=== PATIENT | female | born 2000 | race Caucasian/White ===

== ENCOUNTER 2019-04-17 11:22 | Emergency (ER) | payer BC ==
[2019-04-17] MEDS ORDERED: Sodium Chloride 0.9% 10 ML Syringe FLUSH PRN (11:32)
[2019-04-17 11:43] VITALS: BP 107/59; PULSE 72
--- NOTE | 2019-04-17 12:02 | EDM.PDOC ---
ED HPI GENERAL MEDICAL PROBLEM - General Chief Complaint: Syncope Stated Complaint: HAD 2 FAINTING SPELLS,NAUSEOUS Time Seen by Provider: 04/17/19 11:28 Source of Information: Reports: Patient History Limitations: Reports: No Limitations - History of Present Illness INITIAL COMMENTS - FREE TEXT/NARRATIVE: Patient presents to the ER due to syncopal episodes and migraines. patient states she was in the shower this morning and fainted. Woke up laying in the shower, got back up and while exiting the shower, passes out an additional time and wake up on the bathroom floor. Patient was able to stand and ambulate to bedroom. Laid on the bed and still had diminished vision. Patient drank a coke due to possibly low blood sugar. Symptoms improved. Patient went to class this morning but still was having vision changes and left frontal migraine. Patient states she has a migraines history, about once a month. Denies taking prophylactic medication. only takes Excedrin for abortive medication. States this migraine is much worse than her usual. Patient denies fever, cough, rhinorrhea, nasal congestion, ear pain, diarrhea, nausea, vomiting, urgency, or dysuria. Patient denies feeling different yesterday. Onset: Today Onset Date: 04/17/19 Onset Time: 08:00 Duration: Getting Worse Location: Reports: Head Quality: Reports: Ache Severity: Moderate Improves with: Reports: None Worsens with: Reports: None Associated Symptoms: Reports: Nausea/Vomiting (patient felt nauseated today during class), Syncope Left Headache Pain Score (Numeric/FACES): 6 - Related Data Allergies Allergy/AdvReac Type Severity Reaction Status Date / Time amoxicillin Allergy Hives Verified 04/17/19 11:46 Home Meds: Home Meds Acetaminophen/Butalbital/Caff [Fioricet 325-50-40 MG] 2 each PO Q6HR PRN #20 tab 04/17/19 [Rx] Promethazine [Phenergan] 25 mg PO Q4H PRN #15 tab 04/17/19 [Rx] Past Medical History Neurological History: Reports: Concussion, Migraines Social & Family History - Tobacco Use Smoking Status *Q: Never Smoker - Recreational Drug Use Recreational Drug Use: No Review of Systems - Review of Systems Review Of Systems: See Below Constitutional: Denies: Chills, Diaphoresis, Fever, Weakness Eyes: Reports: Tunnel Vision, Vision Change, Glasses. Denies: Blindness, Decreased Acuity, Foreign Body Sensation, Previous Injury Ears: Reports: No Symptoms. Denies: Dizziness, Pain, Tinnitus Nose: Reports: No Symptoms. Denies: Congestion, Pain, Bloody Discharge, Clear Discharge, Purulent Discharge Mouth/Throat: Reports: No Symptoms Respiratory: Reports: No Symptoms. Denies: Shortness of Breath, Wheezing, Cough , Sputum Cardiovascular: Reports: No Symptoms, Lightheadedness, Syncope. Denies: Chest Pain, Edema, Irregular Heart Rate, Palpitations GI/Abdominal: Reports: No Symptoms, Nausea. Denies: Abdominal Pain, Constipation, Decreased Appetite, Diarrhea, Vomiting Genitourinary: Reports: No Symptoms. Denies: Dysuria, Hematuria, Incontinence, Painful Urination, Vaginal Bleeding Musculoskeletal: Reports: No Symptoms Skin: Reports: No Symptoms Neurological: Reports: Headache, Syncope. Denies: Confusion, Dizziness, Numbness, Paresthesia, Tingling, Tremors, Weakness Psychiatric: Denies: Confusion, Depression, Anxiety ED EXAM, GENERAL - Physical Exam Exam: See Below Exam Limited By: No Limitations General Appearance: Alert, WD/WN, No Apparent Distress Eye Exam: Bilateral Eye: Normal Inspection, PERRL (3mm) Ears: Normal External Exam, Normal Canal, Hearing Grossly Normal, Normal TMs Nose: Normal Inspection, Normal Mucosa, No Blood Throat/Mouth: Normal Inspection, Normal Lips, Normal Teeth, Normal Oropharynx, Normal Voice Head: Atraumatic, Normocephalic Neck: Normal Inspection, Supple, Non-Tender Respiratory/Chest: No Respiratory Distress, Lungs Clear, Normal Breath Sounds, No Accessory Muscle Use, Chest Non-Tender Cardiovascular: Normal Peripheral Pulses, Regular Rate, Rhythm, No Edema, No JVD , No Murmur, No Rub Peripheral Pulses: 2+: Radial (L), Radial (R) GI/Abdominal: Normal Bowel Sounds, Soft, Non-Tender, No Organomegaly, No Distention, No Abnormal Bruit, No Mass (Female) Exam: Deferred Rectal (Female) Exam: Deferred Back Exam: Normal Inspection Extremities: Normal Range of Motion, No Pedal Edema, Normal Capillary Refill Neurological: Alert, Oriented, CN II-XII Intact, Normal Cognition, Normal Gait, Normal Reflexes, No Motor/Sensory Deficits Psychiatric: Normal Affect, Normal Mood Skin Exam: Warm, Dry, Intact, Normal Color, No Rash, Pallor Lymphatic: No Adenopathy EKG INTERPRETATION EKG Date: 04/17/19 Time: 11:25 Rhythm: NSR Rate (Beats/Min): 69 [place]: Normal P-Wave: Present QRS: Normal ST-T: Normal QT: Normal Course - Vital Signs Text/Narrative:: The patient was seen by the PUMP TECHNICIAN. Labs, EKG ordered. Will given IV fluids, Toradol 30mg IVP, Reglan 20mg IVP, and Benadryl 50mg IVP. Last Recorded V/S: Last Vital Signs Temp 36.6 C 04/17/19 11:22 Pulse 72 04/17/19 11:22 Resp 16 04/17/19 11:22 BP 107/59 L 04/17/19 11:22 Pulse Ox 100 04/17/19 11:22 - Orders/Labs/Meds Orders: Active Orders 24 hr Category Date Time Status EKG Documentation Completion [RC] STAT Care 04/17/19 11:28 Active Sodium Chloride 0.9% [Saline Flush] Med 04/17/19 11:32 Active 10 ml FLUSH ASDIRECTED PRN Saline Lock Insert [OM.PC] Routine Oth 04/17/19 11:32 Ordered Medication Orders Sodium Chloride (Saline Flush) 10 ml FLUSH ASDIRECTED PRN PRN Reason: Keep Vein Open Labs: Laboratory Tests 04/17/19 04/17/19 04/17/19 Range/Units 11:55 11:55 12:06 WBC 8.5 (4.0-10.0) x10^3/uL RBC 4.24 (4.00-5.50) x10^6/uL Hgb 12.5 (12.0-16.0) g/dL Hct 38.5 (33.0-47.0) % MCV 90.8 (78.0-93.0) fL MCH 29.5 (26.0-32.0) pg MCHC 32.5 (32.0-36.0) g/dL RDW Coeff of Felice 13.7 (10.0-15.0) % Plt Count 205 (130-400) x10^3/uL Neut % (Auto) 82.6 H (50.0-80.0) % Lymph % (Auto) 11.7 L (25.0-50.0) % [place] % (Auto) 5.3 (2.0-11.0) % Eos % (Auto) 0.2 (0.0-4.0) % Baso % (Auto) 0.2 (0.2-1.2) % Sodium 142 (136-145) mmol/L Potassium 4.3 (3.5-5.1) mmol/L Chloride 104 (98-107) mmol/L Carbon Dioxide 27 (21-32) mmol/L Anion Gap 15.3 (10-20) mmol/L BUN 16 (7-18) mg/dL Creatinine 0.8 (0.55-1.02) mg/dL Est Cr Clr Drug Dosing TNP Estimated GFR (MDRD) > 60 Glucose 92 (74-106) mg/dL Calcium 8.7 (8.5-10.1) mg/dL Corrected Calcium 8.70 (8.5-10.1) mg/dL Magnesium 2.1 (1.8-2.4) mg/dL Total Bilirubin 0.5 (0.2-1.0) mg/dL AST 22 (15-37) U/L ALT 31 (14-59) U/L Alkaline Phosphatase 39 L (46-116) U/L Total Protein 8.2 (6.4-8.2) g/dL Albumin 4.0 (3.4-5.0) g/dL Globulin 4.2 Albumin/Globulin Ratio 0.95 Urine Color (YELLOW) Urine Appearance (CLEAR) Urine pH (5.0-8.0) Ur Specific [place] Urine Protein (NEGATIVE) mg/dL Urine Glucose (UA) (NEGATIVE) mg/dL Urine Ketones (NEGATIVE) mg/dL Urine Occult Blood (NEGATIVE) Urine Nitrite (NEGATIVE) Urine Bilirubin (NEGATIVE) Urine Urobilinogen (0.2) EU/dL Ur Leukocyte Esterase (NEGATIVE) Urine RBC (NOT SEEN) /HPF Urine WBC (NOT SEEN) /HPF Ur Squamous Epith Cells (NEGATIVE) /HPF Amorphous Sediment Urine Bacteria (NEGATIVE) /HPF Urine Mucus (NEGATIVE) /LPF Urine HCG, Qual (NEGATIVE) Urine Opiates Screen Negative (NEGATIVE) Ur Buprenorphine Scrn Negative (NEGATIVE) Ur Oxycodone Screen Negative (NEGATIVE) Ur EDDP (Meth Metab) Negative (NEGATIVE) Urine Methadone Screen Negative (NEGATIVE) Ur Barbituates Screen Negative (NEGATIVE) Ur Tricyclics Screen Negative (NEGATIVE) Ur Phencyclidine Scrn Negative (NEGATIVE) Ur Amphetamines Screen Negative (NEGATIVE) U Methamphetamines Scrn Negative (NEGATIVE) Urine MDMA Screen Negative (NEGATIVE) U Benzodiazepines Scrn Negative (NEGATIVE) Urine Cocaine Screen Negative (NEGATIVE) U Marijuana (THC) Screen Negative (NEGATIVE) Ethyl Alcohol < 3 (0-3) mg/dL 04/17/19 04/17/19 Range/Units 12:06 12:06 WBC (4.0-10.0) x10^3/uL RBC (4.00-5.50) x10^6/uL Hgb (12.0-16.0) g/dL Hct (33.0-47.0) % MCV (78.0-93.0) fL MCH (26.0-32.0) pg MCHC (32.0-36.0) g/dL RDW Coeff of Felice (10.0-15.0) % Plt Count (130-400) x10^3/uL Neut % (Auto) (50.0-80.0) % Lymph % (Auto) (25.0-50.0) % [place] % (Auto) (2.0-11.0) % Eos % (Auto) (0.0-4.0) % Baso % (Auto) (0.2-1.2) % Sodium (136-145) mmol/L Potassium (3.5-5.1) mmol/L Chloride (98-107) mmol/L Carbon Dioxide (21-32) mmol/L Anion Gap (10-20) mmol/L BUN (7-18) mg/dL Creatinine (0.55-1.02) mg/dL Est Cr Clr Drug Dosing Estimated GFR (MDRD) Glucose (74-106) mg/dL Calcium (8.5-10.1) mg/dL Corrected Calcium (8.5-10.1) mg/dL Magnesium (1.8-2.4) mg/dL Total Bilirubin (0.2-1.0) mg/dL AST (15-37) U/L ALT (14-59) U/L Alkaline Phosphatase (46-116) U/L Total Protein (6.4-8.2) g/dL Albumin (3.4-5.0) g/dL Globulin Albumin/Globulin Ratio Urine Color Yellow (YELLOW) Urine Appearance Cloudy H (CLEAR) Urine pH 8.5 H (5.0-8.0) Ur Specific [place] 1.020 Urine Protein 30 H (NEGATIVE) mg/dL Urine Glucose (UA) Negative (NEGATIVE) mg/dL Urine Ketones Negative (NEGATIVE) mg/dL Urine Occult Blood Large H (NEGATIVE) Urine Nitrite Negative (NEGATIVE) Urine Bilirubin Negative (NEGATIVE) Urine Urobilinogen 0.2 (0.2) EU/dL Ur Leukocyte Esterase Negative (NEGATIVE) Urine RBC 5-10 H (NOT SEEN) /HPF Urine WBC 0-5 (NOT SEEN) /HPF Ur Squamous Epith Cells Few H (NEGATIVE) /HPF Amorphous Sediment Moderate Urine Bacteria Rare (NEGATIVE) /HPF Urine Mucus Rare H (NEGATIVE) /LPF Urine HCG, Qual Negative (NEGATIVE) Urine Opiates Screen (NEGATIVE) Ur Buprenorphine Scrn (NEGATIVE) Ur Oxycodone Screen (NEGATIVE) Ur EDDP (Meth Metab) (NEGATIVE) Urine Methadone Screen (NEGATIVE) Ur Barbituates Screen (NEGATIVE) Ur Tricyclics Screen (NEGATIVE) Ur Phencyclidine Scrn (NEGATIVE) Ur Amphetamines Screen (NEGATIVE) U Methamphetamines Scrn (NEGATIVE) Urine MDMA Screen (NEGATIVE) U Benzodiazepines Scrn (NEGATIVE) Urine Cocaine Screen (NEGATIVE) U Marijuana (THC) Screen (NEGATIVE) Ethyl Alcohol (0-3) mg/dL Meds: Medications Generic Name Dose Route Start Last Admin Trade Name Freq PRN Reason Stop Dose Admin Sodium Chloride 10 ml 04/17/19 11:32 Saline Flush FLUSH ASDIRECTED PRN Keep Vein Open Discontinued Medications Generic Name Dose Route Start Last Admin Trade Name Freq PRN Reason Stop Dose Admin Diphenhydramine HCl 50 mg 04/17/19 12:00 04/17/19 12:19 Benadryl IVPUSH 04/17/19 12:01 50 mg ONETIME ONE Administration Sodium Chloride 1,000 mls @ 999 mls/hr 04/17/19 12:00 04/17/19 12:17 Normal Saline IV 04/17/19 13:00 999 mls/hr ONETIME ONE Administration Ketorolac Tromethamine 30 mg 04/17/19 12:00 04/17/19 12:21 Toradol IVPUSH 04/17/19 12:01 30 mg ONETIME ONE Administration Metoclopramide HCl 20 mg 04/17/19 12:00 04/17/19 12:17 Reglan IVPUSH 04/17/19 12:01 20 mg ONETIME ONE Administration - Radiology Interpretation Free Text/Narrative:: head CT no acute findings CT Results Date: 04/17/19 Departure - Departure Time of Disposition: 14:02 Disposition: Home, Self-Care 01 Condition: Good Clinical Impression: Migraine Qualifiers: Migraine type: unspecified Syncope Qualifiers: Syncope type: unspecified Qualified Code(s): R55 - Syncope and collapse - Discharge Information *PRESCRIPTION DRUG MONITORING PROGRAM REVIEWED*: No *COPY OF PRESCRIPTION DRUG MONITORING REPORT IN PATIENT JONEL: No Prescriptions: Acetaminophen/Butalbital/Caff [Fioricet 325-50-40 MG] 2 each PO Q6HR PRN #20 tab PRN Reason: Headache Promethazine [Phenergan] 25 mg PO Q4H PRN #15 tab PRN Reason: Headache Instructions: Dehydration, Adult, [id number], Migraine Headache, [id number] , Recurrent Migraine Headache, [id number], Syncope, [id number] Referrals: PCP,None [Primary Care Provider] - Forms: ED Department Discharge Additional Instructions: Stay hydrated, encourage rest May take Fioricet and Phenergan as needed every 6 hours for migraines Return to ER if symptoms worsens or any concerns Follow up with primary care provider. Sepsis Event Note - Evaluation Sepsis Screening Result: No Definite Risk - Focused Exam Vital Signs: Vital Signs Temp Pulse Resp BP Pulse Ox 04/17/19 11:22 36.6 C 72 16 107/59 L 100 Date Exam was Performed: 04/17/19 Time Exam was Performed: 13:59 - My Orders Last 24 Hours: My Active Orders 04/17/19 11:28 EKG Documentation Completion [RC] STAT 04/17/19 11:32 Sodium Chloride 0.9% [Saline Flush] 10 ml FLUSH ASDIRECTED PRN Saline Lock Insert [OM.PC] Routine - Assessment/Plan Last 24 Hours: My Active Orders 04/17/19 11:28 EKG Documentation Completion [RC] STAT 04/17/19 11:32 Sodium Chloride 0.9% [Saline Flush] 10 ml FLUSH ASDIRECTED PRN Saline Lock Insert [OM.PC] Routine
[2019-04-17 12:15] LABS: BUPRENORPHINE,URINE NEGATIVE (NEGATIVE); MARIJUANA,URINE NEGATIVE (NEGATIVE); METHYLENEDIOXYMETHAMP,UR NEGATIVE (NEGATIVE); PHENCYCLIDINE,URINE NEGATIVE (NEGATIVE)
[2019-04-17] MEDS: Metoclopramide 10 MG/2 ML SDV IVPUSH ONE (12:17)
[2019-04-17] MEDS: Sodium Chloride 0.9% 1,000 ML IV ONE (12:17)
[2019-04-17] MEDS: diphenhydrAMINE 50 MG/ML SDV IVPUSH ONE (12:19)
[2019-04-17] MEDS: Ketorolac 30 MG/ML SDV IVPUSH ONE (12:21)
[2019-04-17 12:22] LABS: CHLORIDE,CL 104 mmol/L (98-107); SODIUM,NA 142 mmol/L (136-145)
[2019-04-17 12:23] LABS: ANION GAP 15.3 mmol/L (10-20)
--- NOTE | 2019-04-17 13:48 | CT ---
[id number] CT/CT Head WO IV EXAM: NONCONTRAST HEAD CT INDICATION: WORST HEADACHE EVER. COMPARISON: None. DISCUSSION: The ventricles and sulci are normal in size and configuration. The veliz and white matter are normal in attenuation. No mass effect or midline shift. No acute hemorrhage or extra-axial fluid collection. No acute territorial infarct is identified. A limited look at the orbits and paranasal sinuses is unremarkable. IMPRESSION: 1. Negative exam. Valente Hahn MD 04/17/19 [id number] Thank you for allowing us to participate in the care of your patient.
== END 2019-04-17 14:13 | disposition home or self-care (01) ==
LOC: VM.ED 11:22
DX: R55 Syncope and collapse (principal); G43.909 Migraine, unspecified, not intractable, without status migrainosus; Z88.0 Allergy status to penicillin
CPT/HCPCS: 36415; 70450; 80053; 80305-QW; 81001; 81025; 83735; 85025; 93005; 96361; 96374; 96375; 99284-25; G0480; J1200; J1885; J2765; J7030